=== PATIENT | female | born 1995 | race African-American/Black ===

== ENCOUNTER 2017-03-11 06:55 | Inpatient (IN) ==
--- NOTE | 2017-03-11 07:03 | History and Physical Update ---
History and Physical Update - History and Physical H&P was reviewed, the patient examined and there: are no changes in the patients condition since last H&P was completed. - Dictation Physical: refer to scanned H&P - Physical Exam Mental Status: alert and oriented Heart: regular rate and rhythm Lung: clear to auscultation Abdomen: within normal limits Vitals: within normal limits (39 weeks for repeat C/S)
[2017-03-11] MEDS ORDERED: CITRIC ACID/SODIUM CITRATE 30 ML UDCUP PO ONE (07:14)
[2017-03-11] MEDS ORDERED: FAMOTIDINE 20 MG/2 ML VIAL IV ONE (07:31)
[2017-03-11 07:32] LABS: Basophils % 0.4 % (0.0-0.8); Eosinophils # 0.1 10*3/uL (0.0-0.87); Eosinophils % 1.2 % (0.00-10.9); Hemoglobin 11.6 GM/DL (12.0-16.0); Immature Granulocytes % 0.4 %; Immature Granulocytes Absolute 0.04 #; Lymphocytes # 2.6 10*3/uL (1.4-4.0); Lymphocytes % 27.9 % (21.3-54.2); Mean Corpuscular HGB Conc 35.2 GM/DL (32-36); Mean Corpuscular Hemoglobin 31 PG (27-34); Mean Corpuscular Volume 88.7 FL (87-102); Mean Platelet Volume 11.2 FL (9.6-12.0); Monocytes # 0.8 10*3/uL (0.11-0.8); Monocytes % 8.2 % (1.7-12.7); Neutrophils # 5.8 10*3/uL (1.4-7.4); Neutrophils % 61.9 % (38.7-73.9); Platelet Count 254 T/CUMM (130-400); Red Blood Count 3.72 MC/CUMM (3.8-5.5); Red Cell Distribution Width 12.9 % (9.3-17.3); White Blood Count 9.4 T/CUMM (4-12)
[2017-03-11] MEDS ORDERED: OXYTOCIN/LR 20 UNIT/1,000 ML BAG IV ONE ×2 (07:32→10:57)
[2017-03-11 07:40] LABS: INR 0.9; PT Patient Result 9.4 SECS; Partial Thromboplastin Time 25.2 SECS (0-40)
[2017-03-11] MEDS: LACTATED RINGERS 1,000 ML IV SCH ×4 (07:51→22:33)
[2017-03-11 07:57] LABS: Albumin 2.8 G/DL (3.4-5.0); Bilirubin,Total 0.4 MG/DL (0.2-1.0); Calcium 9.1 MG/DL (8.5-10.1); Total Protein 7.3 G/DL (6.4-8.3)
[2017-03-11 07:58] LABS: Potassium 3.6 MMOL/L (3.5-5.1)
[2017-03-11] MEDS ORDERED: PHENYLEPHRINE 1 MG/10 ML SYRINGE IV ONE (09:00)
[2017-03-11] MEDS ORDERED: ONDANSETRON 4 MG/2 ML VIAL ONE (09:00)
[2017-03-11] MEDS ORDERED: ONDANSETRON 4 MG/2 ML VIAL IV PRN ×2 (09:31→10:57)
[2017-03-11] MEDS ORDERED: HYDROmorphone 2 MG/1 ML VIAL IV PRN (09:31)
[2017-03-11] MEDS ORDERED: diphenhydrAMINE 50 MG/1 ML VIAL IV PRN (09:31)
[2017-03-11] MEDS ORDERED: LACTATED RINGERS 1,000 ML IV SCH ×2 (10:00→11:00)
[2017-03-11] MEDS ORDERED: SODIUM CHLORIDE 0.9% 1,000 ML IV SCH (10:00)
--- NOTE | 2017-03-11 10:38 | Anesthesia Post-Op ---
Anesthesia Post OP - Post Ansesthetic Evaluation Patient seen in post op: Yes Resp: within normal limits CV: within normal limits Mental: within normal limits Temp: within normal limits [id number]: within normal limits Nausea and Vomiting: within normal limits Pain: within normal limits
[2017-03-11] MEDS ORDERED: MIDAZOLAM 2 MG/2 ML VIAL ONE (10:40)
[2017-03-11] MEDS ORDERED: LACTATED RINGERS 1,000 ML IV ONE (10:40)
[2017-03-11] MEDS ORDERED: MORPHINE 10 MG/10 ML VIAL ONE (10:45)
--- NOTE | 2017-03-11 10:56 | Operative Note ---
Date of procedure: 03/11/17 Pre-op diagnosis: 39 wks for Repeat C/S Post-op diagnosis: same Procedure: Repeat Low Transverse Section After informed consent was obtained the patient was taken to the labor and delivery OR where she was placed in supine position with left lateral tilt after administration of the subarachnoid block by members of the anesthesia department. The patient was then sterilely prepped and draped in the usual customary fashion. A Chavarria catheter was placed to bedside drainage. After assuring adequacy of the subarachnoid block a low transverse skin incision was made with excision of the old cicatrix. Incision was carried through the subcutaneous tissue and Bowen's fascia to the anterior rectus fascia. Rectus muscles are bifurcated in the midline. Peritoneum was carefully entered. A bladder flap was created. The bladder blade was place in the bladder flap. A low transverse myotomy incision was then performed. Uterine cavity was entered with careful dissection. The infant was found in the cephalic presentation and delivered by the usual cephalic delivery technique without difficulty. The baby was bulb suctioned on the operative field. The cord was doubly clamped and cut. The was handed to personnel in attendance. Cord blood was collected. The placenta was manually extracted and sent to pathology for evaluation. The uterus is brought out of the abdominal cavity onto the abdominal wall. Uterine cavity was gently curetted with a moistened lap sponge. The cervix was noted to be dilated. Adnexae were noted to be without pathology. Uterus was carefully replaced into the abdominal cavity due to mother 's anatomy making it difficult to visualize the myotomy incision. Myotomy incision was repaired with a running interlocking stitch of 0 chromic suture from left to right and from right to left. After assuring adequate myotomy closure the adnexa were inspected and found to be without evidence pathology. The abdominal gutters were irrigated with normal saline. The myometrium incision was again inspected. It was found to be hemostatic. Peritoneum was closed with a running stitch of 3-0 Vicryl. Rectus muscles were noted be hemostatic. The fascia was closed in running fashion from left right and from right to left with 0 Vicryl suture. The sutures tied securely at the midline. Adequate fascial closure was assured. Bowen's fascia was reapproximated with a running stitch of 3-0 Vicryl. Skin edges were reapproximated with surgical surgical steel ricarda. The wound was sterilely cleansed and dressed in the usual and customary fashion. Patient tolerated the procedure well and was transferred to recovery in stable condition. Anesthesia: spinal Surgeon / Physician: Jeri Santiago Estimated blood loss: other (500cc) Specimens: other (placenta to path; cord blood to lab) Condition: stable Disposition: PACU Results - Labs CBC & BMP: 03/11/17 07:21 03/11/17 07:21 Discharge Plan - Discharge Medications No Action Ondansetron Odt Tab [Zofran Odt] 4 mg PO Q6H PRN 15 Days PRN Reason: Nausea Nitrofurantoin Macro/Dare [Macrobid] 100 mg PO Q12H 7 Days - Follow Up or Referral - Forms/Instructions
[2017-03-11] MEDS ORDERED: IBUPROFEN 800 MG TABLET PO PRN (10:57)
[2017-03-11] MEDS ORDERED: MAGNESIUM HYDROXIDE SUSP 30 ML UDCUP PO PRN (10:57)
[2017-03-11] MEDS ORDERED: RHO(D) IMMUNE GLOBULIN 300 MCG SYRINGE IM ONE (10:57)
[2017-03-11] MEDS ORDERED: ACETAMINOPHEN 325 MG TABLET PO PRN (10:57)
[2017-03-11] MEDS: DOCUSATE SODIUM 100 MG CAPSULE PO SCH (21:38)
[2017-03-12 04:11] LABS: Basophils % 0.3 % (0.0-0.8); Eosinophils # 0.1 10*3/uL (0.0-0.87); Eosinophils % 0.4 % (0.00-10.9); Hematocrit 29.1 VOL% (35.7-47.0); Hemoglobin 9.9 GM/DL (12.0-16.0); Immature Granulocytes % 0.4 %; Immature Granulocytes Absolute 0.05 #; Lymphocytes # 2.2 10*3/uL (1.4-4.0); Lymphocytes % 16.4 % (21.3-54.2); Mean Corpuscular Hemoglobin 31 PG (27-34); Mean Corpuscular Volume 91.2 FL (87-102); Mean Platelet Volume 11.1 FL (9.6-12.0); Monocytes # 0.9 10*3/uL (0.11-0.8); Neutrophils # 10.1 10*3/uL (1.4-7.4); Neutrophils % 75.5 % (38.7-73.9); Platelet Count 214 T/CUMM (130-400); Red Blood Count 3.19 MC/CUMM (3.8-5.5); Red Cell Distribution Width 12.8 % (9.3-17.3); White Blood Count 13.4 T/CUMM (4-12)
[2017-03-12] MEDS: LACTATED RINGERS 1,000 ML IV SCH (06:35)
--- NOTE | 2017-03-12 07:11 | OB/GYN Progress Note ---
Assessment and Plan (1) delivery delivered Status: Acute Assessment and plan: Routine care. 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 Expected postop discomfort. 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 - Constitutional Vitals: Vital Signs Temp Pulse Resp BP Pulse Ox 03/12/17 04:00 97.1 F L 79 18 122/57 99 03/12/17 03:00 18 03/12/17 01:00 18 03/12/17 00:00 97.6 F 81 18 137/83 99 03/11/17 20:00 97.6 F 75 18 158/81 99 03/11/17 16:10 96.6 F L 72 20 139/87 03/11/17 15:10 67 20 144/71 03/11/17 14:10 68 20 150/79 03/11/17 13:40 64 20 123/76 03/11/17 13:10 96.3 F L 59 L 20 128/77 03/11/17 08:00 80 20 126/89 General appearance: no acute distress, over weight - Head Head exam: Present: normal inspection, normocephalic - Eye Eye exam: Present: EOMI - Respiratory Respiratory exam: Present: clear to auscultation bilaterally - Cardiovascular Cardiovascular exam: Present: regular rate and rhythm - GI/Abdominal GI/Abdominal exam: Present: soft (incision intact without E/I/D) - Extremities Exam Extremities exam: Present: normal inspection - Neurological Exam Neurological exam: Present: alert, oriented X3 - Psychiatric Psychiatric exam: Present: normal affect, normal mood - Skin Skin exam: Present: normal color, warm Results - Labs CBC & BMP: 03/12/17 04:02 03/11/17 07:21 Lab Results: I have reviewed the past 24 hour labs
[2017-03-12] MEDS: DOCUSATE SODIUM 100 MG CAPSULE PO SCH ×2 (09:25→22:01)
[2017-03-12] MEDS: MULTIVITAMIN (PRENATAL) TABLET PO SCH (09:30)
[2017-03-12] MEDS: SIMETHICONE CHEW 80 MG TABLET PO PRN (09:30)
--- NOTE | 2017-03-12 11:21 | Pathology Report from [facility] ---
[facility] ACCESSION # : [id number] PATIENT NAME : Beverley Cordon ORDERING DR : TOMÁS OVERTON DO CLINICAL HX: IUP @ 39 wks gestation, Repeat POST-OP DX: Same SPECIMEN INFO: Placenta GROSS DESCRIPTION: Received fresh labeled with the patients name and consists of a 396 gram placenta which measures 16.5 x 13.0 x 2.8 cm. membranes are pink-marmolejo and translucent. The umbilical cord measures 31.0 cm, contains three vessels and is eccentrically inserted. The surface is blue-león and intact. The maternal surface displays intact cotyledons with scattered calcifications seen. Sectioning reveals no gross abnormalities. Sections submitted: A membranes and cord, B and maternal surfaces. DIAGNOSIS FOR BEVERLEY CORDON: Three vessel umbilical cord.Unremarkable placental membranes.Third trimester placental chorionic villi with focal subchorionic fibrin deposition, focal infarction and scattered microcalcifications. COLLECTED DATE: 03/11/2017 [facility] REPORT DATE: 03/12/2017 ELECTRONICALLY SIGNED BY: Kush Felton M.D. 03/12/2017 - 9:53:19 [email or web address]
[2017-03-13 07:27] VITALS: BP 153/84
[2017-03-13] MEDS ORDERED: INFLUENZA VIRUS VACCINE 0.5 ML SYRINGE IM ONE (07:49)
[2017-03-13] MEDS: DOCUSATE SODIUM 100 MG CAPSULE PO SCH (08:09)
[2017-03-13] MEDS: SIMETHICONE CHEW 80 MG TABLET PO PRN (08:09)
[2017-03-13] MEDS: MULTIVITAMIN (PRENATAL) TABLET PO SCH (08:11)
== END 2017-03-13 12:35 | disposition home or self-care (01) | DRG 540 ==
LOC: N.LDOUT 06:55 → N.LD 06:56 → N.OB 12:58
PROVIDERS: ADMIT Obstetrics & Gynecology; ATTEND Obstetrics & Gynecology
PROC: LDCSECT (ICD-10-PCS; 2017-03-11 07:20)

== ENCOUNTER 2018-02-10 10:22 | Inpatient (IN) ==
[2018-02-10 11:03] LABS: Apearance,Urine CLEAR (Clear); Bilirubin,Urine Negative (Negative); Blood, Urine Negative (Negative); Glucose,Urine (UA) Negative (Negative); Ketones,Urine Negative (Negative); Mucus,Urine Moderate /LPF (Occasional); Nitrite,Urine Negative (Negative); Protein,Urine >=500 MG/DL; RBC,Urine 10 /HPF (0-4); Squamous Epithelial Cell,Urine Occasional /HPF (0-10); Urine Color Yellow (Yellow); Urine Specific Gravity 1.018 (1.001-1.035); Urine Urobilinogen < 2.0 EU/DL (0.2-1.0); WBC,Urine 2 /HPF (0-6)
[2018-02-10 11:11] LABS: Barbiturates Screen,Urine Negative (Negative); Benzodiazepines Screen,Urine Negative (Negative); Cannabinoid Screen,Urine Positive (Negative); Opiate Screen,Urine Negative (Negative); Phencyclidine Screen,Urine Negative (Negative)
[2018-02-10] MEDS ORDERED: CITRIC ACID/SODIUM CITRATE 30 ML UDCUP PO ONE (11:14)
[2018-02-10] MEDS ORDERED: ceFAZolin 2,000 MG in PREMIX 1 EACH IV ONE (11:14)
[2018-02-10] MEDS ORDERED: FAMOTIDINE 20 MG/2 ML VIAL IV ONE (11:14)
[2018-02-10] MEDS: LACTATED RINGERS 1,000 ML IV SCH ×2 (11:32→13:31)
[2018-02-10 11:37] LABS: Basophils % 0.3 % (0.0-0.8); Eosinophils % 0.2 % (0.00-10.9); Hematocrit 33.9 VOL% (35.7-47.0); Hemoglobin 11.7 GM/DL (12.0-16.0); Immature Granulocytes % 0.2 %; Immature Granulocytes Absolute 0.01 #; Lymphocytes # 1.7 10*3/uL (1.4-4.0); Lymphocytes % 28.1 % (21.3-54.2); Mean Corpuscular HGB Conc 34.5 GM/DL (32-36); Mean Corpuscular Hemoglobin 30 PG (27-34); Mean Corpuscular Volume 86.9 FL (87-102); Mean Platelet Volume 12.5 FL (9.6-12.0); Monocytes # 0.5 10*3/uL (0.11-0.8); Monocytes % 8.5 % (1.7-12.7); Neutrophils # 3.7 10*3/uL (1.4-7.4); Neutrophils % 62.7 % (38.7-73.9); Platelet Count 187 T/CUMM (130-400); Red Cell Distribution Width 13.2 % (9.3-17.3); White Blood Count 5.9 T/CUMM (4-12)
[2018-02-10 11:51] LABS: INR 0.8; PT Patient Result 8.9 SECS; Partial Thromboplastin Time 25.4 SECS (0-40)
[2018-02-10 11:56] LABS: Albumin 2.1 G/DL (3.4-5.0); Bilirubin,Total 0.4 MG/DL (0.2-1.0); Calcium 8.6 MG/DL (8.5-10.1); Osmolality,Calculated 272.7 MOS/KG (273-304); Potassium 4.2 MMOL/L (3.5-5.1); Total Protein 6.9 G/DL (6.4-8.3)
[2018-02-10 12:43] LABS: HIV Antigen/Antibody Result Nonreactive (Nonreactive); Hepatitis B Surface Ag Quant < 0.10 Index; Hepatitis B Surface Ag Result Negative (Negative)
[2018-02-10] MEDS ORDERED: LABETALOL 200 MG TABLET PO SCH (13:30)
[2018-02-10] MEDS ORDERED: hydrALAZINE 20 MG/1 ML VIAL IV ONE (15:04)
[2018-02-10] MEDS ORDERED: diphenhydrAMINE 50 MG/1 ML VIAL IV ONE (18:17)
[2018-02-10] MEDS ORDERED: MEPERIDINE 25 MG/1 ML VIAL IV PRN (18:17)
[2018-02-10] MEDS ORDERED: ONDANSETRON 4 MG/2 ML VIAL IV ONE (18:17)
[2018-02-10] MEDS ORDERED: OXYTOCIN/LR 20 UNIT/1,000 ML BAG IV ONE ×2 (18:20→19:30)
[2018-02-10 18:26] LABS: Apearance,Urine Slightly Hazy (Clear); Bilirubin,Urine Negative (Negative); Blood, Urine Small mg/dL (Negative); Glucose,Urine (UA) Negative (Negative); Hyaline Casts,Urine 2 /LPF (0-3); Ketones,Urine 5 mg/dL (Negative); Mucus,Urine Occasional /LPF (Occasional); Nitrite,Urine Negative (Negative); Protein,Urine >=500 MG/DL; RBC,Urine 136 /HPF (0-4); Squamous Epithelial Cell,Urine Occasional /HPF (0-10); Urine Color Yellow (Yellow); Urine Specific Gravity 1.018 (1.001-1.035); Urine Urobilinogen < 2.0 EU/DL (0.2-1.0); WBC,Urine 4 /HPF (0-6)
[2018-02-10] MEDS ORDERED: LACTATED RINGERS 1,000 ML IV SCH ×2 (18:30→20:00)
[2018-02-10] MEDS ORDERED: SODIUM CHLORIDE 0.9% 1,000 ML IV SCH (18:30)
[2018-02-10] MEDS ORDERED: TISSUE ADHESIVE 1 EACH APPLICATOR TOP ONE (19:06)
[2018-02-10] MEDS ORDERED: MIDAZOLAM 2 MG/2 ML VIAL ONE (19:25)
[2018-02-10] MEDS ORDERED: fentaNYL 100 MCG/2 ML VIAL ONE (19:25)
[2018-02-10] MEDS ORDERED: LABETALOL 20 MG/4 ML SYRINGE IV ONE (19:26)
[2018-02-10] MEDS ORDERED: PROPOFOL 200 MG/20 ML VIAL IV ONE (19:26)
[2018-02-10] MEDS ORDERED: SUCCINYLCHOLINE 200 MG/10 ML VIAL ONE (19:27)
[2018-02-10] MEDS ORDERED: SEVOFLURANE 1 UNIT/15 MINUTE INH ONE (19:27)
[2018-02-10] MEDS ORDERED: ONDANSETRON 4 MG/2 ML VIAL IV PRN (19:30)
[2018-02-10] MEDS ORDERED: RHO(D) IMMUNE GLOBULIN 300 MCG SYRINGE IM ONE (19:30)
[2018-02-10] MEDS ORDERED: NALOXONE 0.4 MG/ML VIAL IV PRN (19:38)
[2018-02-10] MEDS ORDERED: KETOROLAC 30 MG/1 ML VIAL IM PRN (19:40)
[2018-02-10] MEDS ORDERED: MORPHINE PCA 30 MG/30 ML SYRINGE IV SCH (20:00)
[2018-02-10] MEDS ORDERED: ceFAZolin 1,000 MG in SYRINGE 1 EACH IV SCH (20:00)
[2018-02-10] MEDS ORDERED: hydrALAZINE 20 MG/1 ML VIAL IV PRN ×2 (20:05→21:02)
[2018-02-11 02:45] LABS: Basophils % 0.2 % (0.0-0.8); Hematocrit 28.1 VOL% (35.7-47.0); Hemoglobin 9.6 GM/DL (12.0-16.0); Immature Granulocytes % 0.5 %; Immature Granulocytes Absolute 0.07 #; Lymphocytes # 1.1 10*3/uL (1.4-4.0); Lymphocytes % 8.4 % (21.3-54.2); Mean Corpuscular HGB Conc 34.2 GM/DL (32-36); Mean Corpuscular Hemoglobin 30 PG (27-34); Mean Corpuscular Volume 87.5 FL (87-102); Mean Platelet Volume 12.5 FL (9.6-12.0); Monocytes # 0.9 10*3/uL (0.11-0.8); Monocytes % 6.4 % (1.7-12.7); Neutrophils # 11.3 10*3/uL (1.4-7.4); Neutrophils % 84.5 % (38.7-73.9); Platelet Count 183 T/CUMM (130-400); Red Blood Count 3.21 MC/CUMM (3.8-5.5); Red Cell Distribution Width 13.4 % (9.3-17.3); White Blood Count 13.4 T/CUMM (4-12)
[2018-02-11 06:14] LABS: Apearance,Urine CLEAR (Clear); Bilirubin,Urine Negative (Negative); Blood, Urine Small mg/dL (Negative); Glucose,Urine (UA) Negative (Negative); Ketones,Urine Negative (Negative); Mucus,Urine Occasional /LPF (Occasional); Nitrite,Urine Negative (Negative); Protein,Urine 100 MG/DL; RBC,Urine 4 /HPF (0-4); Squamous Epithelial Cell,Urine Occasional /HPF (0-10); Urine Color Amber (Yellow); Urine Specific Gravity 1.027 (1.001-1.035); Urine Urobilinogen < 2.0 EU/DL (0.2-1.0); WBC,Urine 21 /HPF (0-6)
[2018-02-11] MEDS: ACETAMINOPHEN 500 MG TABLET PO SCH ×2 (06:48→15:28)
[2018-02-11] MEDS ORDERED: ceFAZolin 2,000 MG in PREMIX 1 EACH IV ONE (08:30)
[2018-02-11] MEDS: hydroCHLOROthiazide 25 MG TABLET PO SCH (09:26)
[2018-02-11] MEDS: DOCUSATE SODIUM 100 MG CAPSULE PO SCH ×2 (09:26→21:31)
[2018-02-11] MEDS: MULTIVITAMIN (PRENATAL) TABLET PO SCH (09:26)
[2018-02-11] MEDS: oxyCODONE/ACETAMINOPHEN 5-325 MG TABLET PO PRN ×2 (15:21→21:31)
[2018-02-11] MEDS: MAGNESIUM HYDROXIDE SUSP 30 ML UDCUP PO PRN (21:30)
[2018-02-12] MEDS ORDERED: hydrALAZINE 20 MG/1 ML VIAL IV PRN (03:25)
[2018-02-12] MEDS: oxyCODONE/ACETAMINOPHEN 5-325 MG TABLET PO PRN ×4 (03:32→23:33)
[2018-02-12] MEDS: BISACODYL 10 MG SUPP RECTAL PRN ×2 (03:35→21:10)
[2018-02-12 08:00] LABS: Calcium 8.7 MG/DL (8.5-10.1); Potassium 4.1 MMOL/L (3.5-5.1)
[2018-02-12] MEDS: SIMETHICONE CHEW 80 MG TABLET PO PRN ×2 (09:19→21:06)
[2018-02-12] MEDS: MULTIVITAMIN (PRENATAL) TABLET PO SCH (09:19)
[2018-02-12] MEDS: hydroCHLOROthiazide 25 MG TABLET PO SCH (09:19)
[2018-02-12] MEDS: amLODIPine 5 MG TABLET PO SCH (09:19)
[2018-02-12] MEDS: DOCUSATE SODIUM 100 MG CAPSULE PO SCH ×2 (09:19→21:06)
[2018-02-12] MEDS: MAGNESIUM HYDROXIDE SUSP 30 ML UDCUP PO PRN ×2 (09:20→21:06)
[2018-02-13 05:46] LABS: Basophils % 0.4 % (0.0-0.8); Eosinophils # 0.1 10*3/uL (0.0-0.87); Eosinophils % 0.9 % (0.00-10.9); Hematocrit 25.3 VOL% (35.7-47.0); Hemoglobin 8.1 GM/DL (12.0-16.0); Immature Granulocytes % 0.6 %; Immature Granulocytes Absolute 0.05 #; Lymphocytes # 2.2 10*3/uL (1.4-4.0); Lymphocytes % 23.8 % (21.3-54.2); Mean Corpuscular Hemoglobin 30 PG (27-34); Mean Corpuscular Volume 94.1 FL (87-102); Mean Platelet Volume 11.7 FL (9.6-12.0); Monocytes # 0.7 10*3/uL (0.11-0.8); Monocytes % 7.4 % (1.7-12.7); Neutrophils # 6.1 10*3/uL (1.4-7.4); Neutrophils % 66.9 % (38.7-73.9); Platelet Count 225 T/CUMM (130-400); Red Blood Count 2.69 MC/CUMM (3.8-5.5); Red Cell Distribution Width 13.8 % (9.3-17.3); White Blood Count 9.1 T/CUMM (4-12)
[2018-02-13 06:08] LABS: Calcium 8.6 MG/DL (8.5-10.1); Osmolality,Calculated 264.2 MOS/KG (273-304); Potassium 3.9 MMOL/L (3.5-5.1)
[2018-02-13] MEDS: hydroCHLOROthiazide 25 MG TABLET PO SCH (08:37)
[2018-02-13] MEDS: MULTIVITAMIN (PRENATAL) TABLET PO SCH (08:37)
[2018-02-13] MEDS: SIMETHICONE CHEW 80 MG TABLET PO PRN (08:38)
[2018-02-13] MEDS: oxyCODONE/ACETAMINOPHEN 5-325 MG TABLET PO PRN (08:38)
[2018-02-13] MEDS: MAGNESIUM HYDROXIDE SUSP 30 ML UDCUP PO PRN (08:38)
[2018-02-13] MEDS: amLODIPine 5 MG TABLET PO SCH (08:38)
[2018-02-13] MEDS: DOCUSATE SODIUM 100 MG CAPSULE PO SCH (08:38)
[2018-02-13 12:48] VITALS: BP 149/83
== END 2018-02-13 15:00 | disposition home or self-care (01) | DRG 765 ==
LOC: N.LDOUT 10:22 → N.LD 10:27 → N.OB 22:50
PROVIDERS: ADMIT Obstetrics & Gynecology; ATTEND Obstetrics & Gynecology
PROC: LDCSECT (ICD-10-PCS; 2018-02-10 13:00)

== ENCOUNTER 2019-03-31 20:26 | Inpatient (IN) ==
[2019-03-31 21:24] LABS: Apearance,Urine Clear (Clear); Bacteria,Urine Occasional /HPF (Few); Bilirubin,Urine Negative (Negative); Blood, Urine NEGATIVE (Negative); Glucose,Urine (UA) Negative (Negative); Ketones,Urine Negative (Negative); Nitrite,Urine Negative (Negative); Protein,Urine Negative; RBC,Urine 1 /HPF (0-4); Squamous Epithelial Cell,Urine Occasional /HPF (0-10); Urine Color Yellow (Yellow); Urine Specific Gravity 1.005 (1.001-1.035); Urine Urobilinogen 0.2 EU/DL (0.2-1.0); WBC,Urine 1 /HPF (0-6)
[2019-03-31] MEDS ORDERED: ONDANSETRON 4 MG/2 ML VIAL IV PRN ×2 (21:37→23:54)
[2019-03-31] MEDS ORDERED: ceFAZolin 3,000 MG in SYRINGE 1 EACH IV ONE (21:42)
[2019-03-31] MEDS ORDERED: CITRIC ACID/SODIUM CITRATE 30 ML UDCUP PO ONE (21:43)
[2019-03-31] MEDS ORDERED: CITRIC ACID/SODIUM CITRATE 30 ML UDCUP ONE (21:44)
[2019-03-31 21:51] LABS: Basophils % 0.4 % (0.0-0.8); Eosinophils # 0.1 10*3/uL (0.0-0.87); Eosinophils % 0.5 % (0.00-10.9); Hematocrit 35.5 VOL% (35.7-47.0); Hemoglobin 11.7 GM/DL (12.0-16.0); Immature Granulocytes % 0.3 %; Immature Granulocytes Absolute 0.03 #; Lymphocytes # 3.2 10*3/uL (1.4-4.0); Lymphocytes % 32.9 % (21.3-54.2); Mean Corpuscular Volume 91.5 FL (87-102); Mean Platelet Volume 11.5 FL (9.6-12.0); Monocytes % 7.3 % (1.7-12.7); Neutrophils % 58.6 % (38.7-73.9); Platelet Count 231 T/CUMM (130-400); Red Blood Count 3.88 MC/CUMM (3.8-5.5); Red Cell Distribution Width 13.1 % (9.3-17.3); White Blood Count 9.8 T/CUMM (4-12)
[2019-03-31] MEDS ORDERED: OXYTOCIN/LR 20 UNIT/1,000 ML BAG IV ONE ×3 (21:54→23:54)
[2019-03-31] MEDS ORDERED: FAMOTIDINE 20 MG/2 ML VIAL IV SCH (22:00)
[2019-03-31] MEDS ORDERED: LACTATED RINGERS 1,000 ML IV SCH ×2 (22:00→23:45)
[2019-03-31] MEDS ORDERED: SODIUM CHLORIDE 0.9% 1,000 ML IV PRN (22:02)
[2019-03-31 22:09] LABS: Alanine Aminotransferase 34 U/L (13-56); Albumin 2.8 G/DL (3.4-5.0); Alkaline Phosphatase 99 U/L (45-117); Aspartate Amino Transferase 21 U/L (0-37); Bilirubin,Total < 0.39 MG/DL (0.2-1.0); Blood Urea Nitrogen 7 MG/DL (7-18); Calcium 9.2 MG/DL (8.5-10.1); Estimated Glom Filtration Rate 181 ML/MIN; Glucose 75 MG/DL (74-106); Osmolality,Calculated 271.7 MOS/KG (273-304); Total Protein 7.5 G/DL (6.4-8.3)
[2019-03-31] MEDS ORDERED: HYDROmorphone 2 MG/1 ML VIAL ONE (22:32)
[2019-03-31 22:37] LABS: Cord Arterial Blood HCO3 17.6 MMOL/L
[2019-03-31 22:40] LABS: Cord Venous Blood HCO3 20.3 MMOL/L; Cord Venous Blood PCO2 51.9 MMHG
[2019-03-31 22:41] LABS: Cord Venous Blood PO2 19.7
[2019-03-31] MEDS ORDERED: METHYLERGONOVINE 0.2 MG/1 ML AMP ONE (22:42)
[2019-03-31 23:33] LABS: Basophils % 0.4 % (0.0-0.8); Eosinophils # 0.1 10*3/uL (0.0-0.87); Eosinophils % 0.9 % (0.00-10.9); Hematocrit 30.5 VOL% (35.7-47.0); Hemoglobin 10.1 GM/DL (12.0-16.0); Immature Granulocytes % 0.4 %; Immature Granulocytes Absolute 0.03 #; Lymphocytes # 3.3 10*3/uL (1.4-4.0); Lymphocytes % 39.7 % (21.3-54.2); Mean Corpuscular HGB Conc 33.1 GM/DL (32-36); Mean Corpuscular Volume 91.9 FL (87-102); Mean Platelet Volume 11.2 FL (9.6-12.0); Monocytes % 7.4 % (1.7-12.7); Neutrophils % 51.2 % (38.7-73.9); Platelet Count 193 T/CUMM (130-400); Red Blood Count 3.32 MC/CUMM (3.8-5.5); Red Cell Distribution Width 13.1 % (9.3-17.3); White Blood Count 8.2 T/CUMM (4-12)
[2019-03-31 23:44] LABS: INR 0.8; PT Patient Result 8.7 SECS (9.6-12.2)
[2019-03-31] MEDS ORDERED: ACETAMINOPHEN 325 MG TABLET PO PRN (23:54)
[2019-03-31] MEDS ORDERED: RHO(D) IMMUNE GLOBULIN 300 MCG SYRINGE IM ONE (23:54)
[2019-04-01] MEDS ORDERED: LIDOCAINE 2% 5 ML VIAL ONE (00:06)
[2019-04-01] MEDS ORDERED: PROPOFOL 200 MG/20 ML VIAL IV ONE (00:06)
[2019-04-01] MEDS ORDERED: SEVOFLURANE 1 UNIT/15 MINUTE INH ONE (00:06)
[2019-04-01] MEDS ORDERED: fentaNYL 100 MCG/2 ML VIAL ONE (00:07)
[2019-04-01] MEDS ORDERED: ONDANSETRON 4 MG/2 ML VIAL ONE (00:07)
[2019-04-01] MEDS ORDERED: SUCCINYLCHOLINE 200 MG/10 ML VIAL ONE (00:07)
[2019-04-01] MEDS ORDERED: HYDROmorphone 2 MG/1 ML VIAL IV ONE ×2 (01:28→07:50)
[2019-04-01] MEDS: LABETALOL 200 MG TABLET PO SCH ×3 (03:05→21:42)
[2019-04-01] MEDS ORDERED: diphenhydrAMINE 50 MG/1 ML VIAL IV ONE (03:19)
[2019-04-01] MEDS: IBUPROFEN 800 MG TABLET PO PRN ×2 (04:16→17:35)
[2019-04-01] MEDS: oxyCODONE/ACETAMINOPHEN 5-325 MG TABLET PO PRN ×3 (04:16→21:46)
[2019-04-01 05:17] LABS: Basophils % 0.2 % (0.0-0.8); Eosinophils % 0.1 % (0.00-10.9); Hematocrit 32.2 VOL% (35.7-47.0); Hemoglobin 10.8 GM/DL (12.0-16.0); Immature Granulocytes % 0.3 %; Immature Granulocytes Absolute 0.03 #; Lymphocytes # 2.3 10*3/uL (1.4-4.0); Lymphocytes % 19.2 % (21.3-54.2); Mean Corpuscular HGB Conc 33.5 GM/DL (32-36); Mean Corpuscular Volume 91.7 FL (87-102); Mean Platelet Volume 11.1 FL (9.6-12.0); Monocytes % 6.3 % (1.7-12.7); Neutrophils % 73.9 % (38.7-73.9); Platelet Count 204 T/CUMM (130-400); Red Blood Count 3.51 MC/CUMM (3.8-5.5); Red Cell Distribution Width 13.1 % (9.3-17.3)
[2019-04-01] MEDS ORDERED: ceFAZolin 1,000 MG in SYRINGE 1 EACH IV SCH (06:00)
[2019-04-01] MEDS ORDERED: ACETAMINOPHEN INJ 1,000 MG in PREMIX 1 EACH IV ONE (07:49)
[2019-04-01] MEDS ORDERED: FAMOTIDINE 20 MG TABLET PO SCH (09:00)
[2019-04-01] MEDS: DOCUSATE SODIUM 100 MG CAPSULE PO SCH ×2 (10:21→21:42)
[2019-04-01] MEDS: MULTIVITAMIN (PRENATAL) TABLET PO SCH (10:22)
[2019-04-01] MEDS: MAGNESIUM HYDROXIDE SUSP 30 ML UDCUP PO PRN ×2 (10:22→21:42)
[2019-04-01] MEDS: ceFAZolin 1,000 MG in SYRINGE 1 EACH IV SCH ×2 (11:10→18:19)
[2019-04-02] MEDS: IBUPROFEN 800 MG TABLET PO PRN ×3 (01:16→16:05)
[2019-04-02] MEDS: SIMETHICONE CHEW 80 MG TABLET PO PRN ×3 (03:11→21:17)
[2019-04-02 05:14] LABS: Hematocrit 26.1 VOL% (35.7-47.0); Hemoglobin 8.7 GM/DL (12.0-16.0)
[2019-04-02] MEDS: oxyCODONE/ACETAMINOPHEN 5-325 MG TABLET PO PRN ×3 (06:19→20:11)
[2019-04-02] MEDS: DOCUSATE SODIUM 100 MG CAPSULE PO SCH ×2 (09:05→21:16)
[2019-04-02] MEDS: LABETALOL 200 MG TABLET PO SCH ×2 (09:05→21:16)
[2019-04-02] MEDS: MAGNESIUM HYDROXIDE SUSP 30 ML UDCUP PO PRN ×2 (09:05→21:17)
[2019-04-02] MEDS: MULTIVITAMIN (PRENATAL) TABLET PO SCH (09:06)
[2019-04-03] MEDS: IBUPROFEN 800 MG TABLET PO PRN ×2 (03:09→12:48)
[2019-04-03] MEDS: oxyCODONE/ACETAMINOPHEN 5-325 MG TABLET PO PRN ×2 (03:10→10:50)
[2019-04-03] MEDS: MULTIVITAMIN (PRENATAL) TABLET PO SCH (10:29)
[2019-04-03] MEDS: LABETALOL 200 MG TABLET PO SCH (10:29)
[2019-04-03] MEDS: DOCUSATE SODIUM 100 MG CAPSULE PO SCH (10:29)
[2019-04-03] MEDS: MAGNESIUM HYDROXIDE SUSP 30 ML UDCUP PO PRN (10:29)
[2019-04-03 12:38] VITALS: BP 137/82
== END 2019-04-03 16:10 | disposition home or self-care (01) | DRG 540 ==
LOC: N.LDOUT 20:26 → N.LD 20:31 → N.OB 04-01 09:15
PROVIDERS: ADMIT Obstetrics & Gynecology; ATTEND Obstetrics & Gynecology